=== PATIENT | female | born 1950 | race Caucasian/White ===

== ENCOUNTER → 2018-06-24 | Outpatient (CLI) | payer MEDICARE ==
--- NOTE | 2018-06-24 13:18 | Diagnostic Imaging Report ---
PROCEDURE: CT head without contrast. TECHNIQUE: Multiple contiguous axial images were obtained through the brain without the use of intravenous contrast. INDICATION: Transient ischemic attack. History of hypertension and tobacco use. Carotid artery atherosclerosis. COMPARISON: None FINDINGS: There is no midline shift or mass effect. The ventricles and sulci are unremarkable. No evidence for acute intracranial hemorrhage, abnormal extra-axial fluid collections or cerebral edema is present. The basilar cisterns are unremarkable. The bony calvarium is intact. The visualized paranasal sinuses and mastoid air cells are clear. IMPRESSION: Negative appearing noncontrast CT of the head. Dictated by: Dictated on workstation # [id number]
--- NOTE | 2018-06-24 13:21 | Diagnostic Imaging Report ---
PROCEDURE: US carotid duplex, bilateral. TECHNIQUE: Multiple real-time grayscale images were obtained over the carotid arteries in various projections, bilaterally. Additional spectral analysis and color Doppler duplex images were also obtained. INDICATION: Transient ischemic attack. FINDINGS: There is mild plaquing identified at both carotid bifurcations as well as the proximal internal and external carotid arteries. Greatest plaque appears to be located in the proximal left ICA. However, velocities are fairly normal bilaterally. No significant velocity elevation or stenosis is seen. Both vertebral arteries show antegrade flow. IMPRESSION: Bilateral carotid plaque. There is no evidence of a hemodynamically significant stenosis. Parameters based on the consensus panel Rosales-Scale and Doppler ultrasound criteria published March 2003, Radiology, Volume 229. DOPPLER (peak systolic velocity M/S Right Left CCA 0.46 0.64 ICA Proximal 0.61 0.72 ICA Mid 0.72 0.88 ICA Distal 0.54 0.78 RATIO 1.56 1.38 ECA 1.25 1.29 VERT 0.81 0.63 Dictated by: Dictated on workstation # [id number]
== END ==
LOC: RAD 11:48
PROVIDERS: ATTEND Pediatrics
DX: I65.23 Occlusion and stenosis of bilateral carotid arteries (principal); I25.10 Atherosclerotic heart disease of native coronary artery without angina pectoris; Z87.891 Personal history of nicotine dependence; Z86.79 Personal history of other diseases of the circulatory system
CPT/HCPCS: 70450; 93306; 93880

== ENCOUNTER → 2018-08-01 | Outpatient (CLI) | payer MEDICARE ==
--- NOTE | 2018-08-01 09:42 | Diagnostic Imaging Report ---
PROCEDURE: US abdomen complete. TECHNIQUE: Multiple real-time grayscale images were obtained over the abdomen in various projections. INDICATION: Right upper quadrant abdominal pain. FINDINGS: Liver is normal in size at 14.4 cm. No discrete liver mass is identified. Portal vein is patent and shows normal direction of flow. Gallbladder is without stones or sludge. No wall thickening or biliary ductal dilatation is seen. Visualized pancreas is unremarkable. Spleen is normal in size at 9.9 cm. Proximal aorta is non-aneurysmal. Mid and distal aorta were obscured by bowel gas. IVC appears patent. Right kidney does contain a cyst in the upper pole approximately 16 mm in size. Left kidney contains a cyst in the midportion approximately 18 mm in size. No calculi or hydronephrosis is identified. There is no ascites. IMPRESSION: Essentially unremarkable abdominal ultrasound apart from small bilateral renal cysts. There is no evidence of cholelithiasis or acute cholecystitis. Dictated by: Dictated on workstation # [id number]
== END ==
LOC: RAD 07:55
PROVIDERS: ATTEND Pediatrics
DX: N28.1 Cyst of kidney, acquired (principal)
CPT/HCPCS: 76700

== ENCOUNTER → 2018-08-11 | Outpatient (CLI) | payer MEDICARE ==
--- NOTE | 2018-08-11 19:33 | Diagnostic Imaging Report ---
EXAMINATION: Pelvic ultrasound. INDICATION: Intramural leiomyoma of the uterus. COMPARISON: There are no prior studies available for comparison. FINDINGS: The uterus is not enlarged measuring 7.8 x 4.7 x 3.4 cm. Along the anterior aspect of the uterine body/fundus, there is a 2.4 x 1.9 x 1.9 cm area of slightly altered echogenicity. This finding is questionable for a fibroid. There is no other focal mass involving the uterus. The endometrial lining is not thickened measuring 5 mm. Neither ovary was identified. There is no solid pelvic mass or free fluid collection noted. IMPRESSION: 1. There is a question of a 2.4 x 1.9 x 1.9 cm fibroid along the anterior aspect of the body/fundus of the uterus. The uterus itself does not seem to be enlarged. 2. There is no acute pelvic abnormality noted. 3. The ovaries were not identified. Dictated by: Dictated on workstation # [id number]
== END ==
LOC: RAD 15:10
PROVIDERS: ATTEND Pediatrics
DX: D25.1 Intramural leiomyoma of uterus (principal)
CPT/HCPCS: 76830; 76856

== ENCOUNTER 2019-06-08 09:17 | Emergency (ER) | payer MEDICARE ==
[~2019-06-08] VITALS: Ht 163.5 cm; Wt 84.4 kg
[2019-06-08] MEDS ORDERED: RT-ALBUTEROL/IPRATROPIUM 3 ML (DUONEB) VIAL INH ONE (09:45)
--- NOTE | 2019-06-08 09:50 | ED Respiratory ---
General Chief Complaint: Respiratory Problems Stated Complaint: SOA Nursing Triage Note: pt reports that co-worker came to work last week with pna and now she believes she has pna. pt reports having hard time sleeping due to cough. Source: patient Exam Limitations: no limitations History of Present Illness Date Seen by Provider: Jun 08, 2019 Time Seen by Provider: 09:35 Initial Comments Patient resents to ER by private conveyance with her significant other and chief complaint that for the past week or 2 she's been having some shortness of breath nonproductive cough. No fevers or chills. She says there was someone at her work that had pneumonia. She does not have a history of COPD or asthma but does smoke pack and a half of cigarettes per day. She denies wheezing or having an nebulizer or albuterol inhaler. She is to follow with Dr. Tadeo but is setting up to establish care with Dr. Lew. She has no chest pain nausea sweats dysuria. Allergies and Home Medications Allergies Coded Allergies: No Known Drug Allergies (Unverified , 06/08/19) Patient Home Medication List Home Medication List Reviewed: Yes Review of Systems Review of Systems Constitutional: No chills, No fever, No malaise EENTM: No ear discharge, No ear pain Respiratory: cough; No phlegm, No wheezing Cardiovascular: No chest pain, No edema Gastrointestinal: No abdominal pain, No constipation, No diarrhea, No nausea Genitourinary: No discharge, No dysuria Musculoskeletal: No back pain, No joint pain Skin: No pruritus, No rash Psychiatric/Neurological: Denies Headache, Denies Numbness Past Cxtautt-Cvnugr-Wulsdt Hx Patient Social History Alcohol Use: Denies Use Recreational Drug Use: No Smoking Status: Current Everyday Smoker Type Used: Cigarettes Recent Foreign Travel: No Contact w/Someone Who Travel: No Recent Infectious Disease Expo: No Recent Hopitalizations: No Physical Abuse: No Sexual Abuse: No Seasonal Allergies Seasonal Allergies: No Past Medical History Surgeries: No Respiratory: No Cardiac: Yes Hypertension Neurological: No Genitourinary: No Gastrointestinal: No Musculoskeletal: No Endocrine: No HEENT: No Cancer: No Psychosocial: No Integumentary: No Blood Disorders: No Physical Exam Vital Signs - First Documented 06/08/19 09:24 Temp 36.1 Pulse 60 Resp 16 B/P (MAP) 204/105 (138) Pulse Ox 94 O2 Delivery Room Air Capillary Refill : Less Than 3 Seconds Height: '" Weight: lbs. oz. kg; 31.00 BMI Method: General Appearance: WD/WN, no apparent distress Eyes: Bilateral Eye Normal Inspection, Bilateral Eye PERRL, Bilateral Eye EOMI HEENT: PERRL/EOMI, normal ENT inspection, pharynx normal Neck: full range of motion, supple, normal inspection Respiratory: no respiratory distress, no accessory muscle use, wheezing (bilateral) Cardiovascular: normal peripheral pulses, regular rate, rhythm Neurologic/Psychiatric: alert, normal mood/affect Skin: normal color, warm/dry Progress/Results/Core Measures Suspected Sepsis Recent Fever Within 48 Hours: No Infection Criteria Present: None New/Unexplained Altered Menta: No Sepsis Screen: No Definite Risk SIRS Temperature: Pulse: 60 Respiratory Rate: 16 Blood Pressure 204 /105 Mean: 138 Results/Orders Micro Results Microbiology 06/08/19 Influenza Types A,B Antigen (CHANO) - Final, Complete My Orders Orders - LASHAE OWENS Influenza A And B Antigens (06/08/19 09:45) Chest Pa/Lat (2 View) (06/08/19 09:45) Albuterol/Ipra Inhalation Soln (Duoneb I (06/08/19 09:45) Svn Small Volume Nebulizer (06/08/19 09:45) Medications Given in ED Current Medications Medications Dose Ordered Sig/Maria Antonia Route Start Time Stop Time Status Last Admin Dose Admin Albuterol/ Ipratropium 3 ml ONCE ONCE INH 06/08/19 09:45 06/08/19 09:46 DC 06/08/19 09:54 3 ML Vital Signs/I&O 06/08/19 09:24 Temp 36.1 Pulse 60 Resp 16 B/P (MAP) 204/105 (138) Pulse Ox 94 O2 Delivery Room Air Capillary Refill : Less Than 3 Seconds Blood Pressure Mean: 138 Progress Note #1: Time: 09:49 Progress Note Chest x-ray and a DuoNeb. We'll reassess her. Influenza swab. Aseptic vital signs nonacute presentation. Suspect underlying COPD and we have encouraged her to explore this with her primary care. Progress Note #2: Time: 11:29 Progress Note Breath sounds are improved however I still hear some wheezing. We'll put her on prednisone and have her follow-up with primary care for recheck in one week. Diagnostic Imaging Diagonstic Imaging: Xray Plain Films/CT/US/NM/MRI: chest (two-view) Comments [facility], [place] NAME: [facility] REC#: [id number] PT STATUS: REG ER : 1950 PHYSICIAN: LASHAE OWENS MD ADMIT DATE: 06/08/19/ER Signed Date of Exam:06/08/19 CHEST PA/LAT (2 VIEW) INDICATION: Shortness of breath. COMPARISON: None. FINDINGS: Frontal and lateral views of the chest demonstrate clear lungs bilaterally. The heart is normal. There is no pneumothorax. Osseous structures are normal. IMPRESSION: Negative chest. Dictated by: Dictated on workstation # [id number] Dict: 06/08/19 1038 Trans: 06/08/19 1042 [id number] Interpreted by: JUDY BARRETT Electronically signed by: JUDY BARRETT 06/08/19 1042 Reviewed: Reviewed by Me Departure Impression Primary Impression: Bronchitis Disposition: 01 HOME, SELF-CARE Condition: Improved Departure-Patient Inst. Decision time for Depature: 11:30 Referrals: CORTES TADEO MD (PCP/Family) Primary Care Physician Patient Instructions: Acute Bronchitis, Adult (DC) Add. Discharge Instructions: 2 puffs of albuterol every 4 hours as needed for wheezing, shortness of breath or coughing fits. Tessalon Perles 1 tablet every 6 hours as needed for coughing. Humidifiers and vapor rubs. Tylenol and ibuprofen for fever or body aches. Get plenty of rest and return to work when you're no longer having fever for 24 hours. All discharge instructions reviewed with patient and/or family. Voiced understanding. Scripts Benzonatate (TESSALON PERLES) 100 Mg Capsule 100 MG PO Q6H PRN for COUGH, #30 CAP 0 Refills Prov: LASHAE OWENS 06/08/19 Prednisone (Prednisone) 20 Mg Tab 40 MG PO DAILY for 5 Days, #10 TAB 0 Refills Prov: LASHAE OWENS 06/08/19 Inhaler, Assist Devices (Space Chamber Plus) 1 Each Spacer EACH MC for Wheezing, #1 Prov: LASHAE OWENS 06/08/19 Albuterol Sulfate (PROAIR HFA) 1 Puff Puff 2 PUFF IH Q4H PRN for WHEEZING, #1 EA 0 Refills 1 PUFF = 90 MCG Prov: LASHAE OWENS 06/08/19 Work/School Note: Work Release Form Date Seen in the Emergency Department: Jun 08, 2019 Return to Work: Jun 09, 2019 Restrictions: No Restrictions LASHAE OWENS Jun 08, 2019 09:50
--- NOTE | 2019-06-08 10:41 | Diagnostic Imaging Report ---
INDICATION: Shortness of breath. COMPARISON: None. FINDINGS: Frontal and lateral views of the chest demonstrate clear lungs bilaterally. The heart is normal. There is no pneumothorax. Osseous structures are normal. IMPRESSION: Negative chest. Dictated by: Dictated on workstation # [id number]
--- NOTE | 2019-06-08 11:15 | NUR ---
RESTING IN BED ET DENIES NEEDS AT THIS TIME. NOTIFIED EVERYTHING WAS BACK ET WAITING ON DR TO LOOK AT EVERYTHING.
[2019-06-08] MEDS ORDERED: INHA1SPA24 MC (11:29)
[2019-06-08] MEDS ORDERED: PRD20T PO (11:29)
[2019-06-08] MEDS ORDERED: BENZ100C18 PO (11:29)
[2019-06-08] MEDS ORDERED: RT-ALBUINH IH (11:29)
[2019-06-08 11:36] VITALS: BP 138/99
== END 2019-06-08 11:35 | disposition home or self-care (01) ==
LOC: EDUNIT# 09:17 → ER 09:18
DX: J40 Bronchitis, not specified as acute or chronic (principal); I10 Essential (primary) hypertension; F17.210 Nicotine dependence, cigarettes, uncomplicated
CPT/HCPCS: 71046; 87804

== ENCOUNTER → 2019-11-25 | Outpatient (CLI) | payer MEDICARE ==
[~2019-11-25] MED LIST: BENZ100C18 PO; INHA1SPA24 MC; PRD20T PO; RT-ALBUINH IH
[2019-11-25 13:34] LABS: ABSOLUTE RETIC # 77 10e9/L (24-90); BASOPHILS % (AUTO) 0 % (0-10); EOSINOPHILS # (AUTO) 0.4 10^3/uL (0.0-0.3); EOSINOPHILS % (AUTO) 4 % (0-10); HEMATOCRIT 50 % (35-52); HEMOGLOBIN 16.9 G/DL (11.5-16.0); LYMPHOCYTES % (AUTO) 25 % (12-44); MEAN CORPUSCULAR HEMOGLOBIN 29 PG (25-34); MEAN CORPUSCULAR HGB CONC 34 G/DL (32-36); MEAN CORPUSCULAR VOLUME 86 FL (80-99); MEAN PLATELET VOLUME 10.8 FL (7.4-10.4); MONOCYTES % (AUTO) 8 % (0-12); NEUTROPHILS # (AUTO) 7.7 X 10^3 (1.8-7.8); NEUTROPHILS % (AUTO) 63 % (42-75); PLATELET COUNT 226 10^3/uL (130-400); RED CELL DISTRIBUTION WIDTH 15.5 % (10.0-14.5); RETICULOCYTE % 1.33 % (0.50-2.40); WHITE BLOOD COUNT 12.2 10^3/uL (4.3-11.0)
[2019-11-25 14:31] LABS: NEUTROPHILS % (MANUAL) 58 %
[2019-11-25 14:32] LABS: ANISOCYTOSIS SLIGHT; BASOPHILS % (MANUAL) 0 %; EOSINOPHILS % (MANUAL) 3 %; LYMPHOCYTES % (MANUAL) 31 %; MONOCYTES % (MANUAL) 8 %
== END ==
LOC: LAB 13:10
PROVIDERS: ATTEND Nurse Practitioner Family
DX: Z01.89 Encounter for other specified special examinations (principal)
CPT/HCPCS: 36415; 85007; 85027; 85045

== ENCOUNTER → 2020-07-19 | Outpatient (CLI) | payer MEDICARE ==
--- NOTE | 2020-07-19 10:53 | Diagnostic Imaging Report ---
INDICATION: Persistent hypertension. TECHNIQUE: Multiple Real-time grayscale sonographic images, color and duplex Doppler images were obtained of the urinary system. FINDINGS: Aortic velocity: 42.8 cm/sec. There is incidental note made of a distal abdominal aortic aneurysm measuring approximately 3.2 cm. RIGHT kidney: Size: 11.6 x 4.4 x 5.6 cm Hypoechoic masses, compatible with cysts. Largest at 2.2 cm superiorly. No hydronephrosis. The right renal artery is visualized in its proximal, mid and distal aspect. Maximum renal artery velocity: 164cm/sec Maximum renal artery/aortic ratio: 3.9 LEFT kidney: Size: 12.7 x 5.1 x 5.4 cm The left renal parenchyma and collecting system appear unremarkable. Probable cyst inferior pole left kidney at 1.5 cm. No hydronephrosis. Maximum renal artery velocity: 102cm/sec Maximum renal artery/aortic ratio: 2.4 Bladder: Unremarkable. The ureteral jets are not visualized. IMPRESSION: 1. Bilateral renal cortical cysts. 2. Diffusely decreased abdominal aortic velocity. This finding is nonspecific. There is presence of a distal abdominal aortic aneurysm measuring slightly greater than 3 cm. 3. Asymmetrically elevated velocity in the proximal right renal artery does raise concern for renal artery stenosis. 4. Given the findings, correlation with CTA of the abdominal aorta and abdomen would be recommended. 5. The report was called and faxed to JOSE Nnuo, by [email or web address]@10:48 AM. (RA/AO ratios > 3.0 may suggest potential hemodynamically significant stenosis.) Dictated by: Dictated on workstation # [id number]
== END ==
LOC: RAD 08:30
PROVIDERS: ATTEND Nurse Practitioner Family
DX: I10 Essential (primary) hypertension (principal); N28.1 Cyst of kidney, acquired; I71.4 Abdominal aortic aneurysm, without rupture
CPT/HCPCS: 76770; 93975

== ENCOUNTER 2020-08-01 08:10 | Day surgery (SDC) | payer MEDICARE ==
[~2020-08-01] VITALS: Ht 165.1 cm; Wt 85.7 kg
[2020-08-01] VITALS (11 sets, daily range): BP systolic 135–164; BP diastolic 71–87
[2020-08-01] MEDS ORDERED: NS IV 1000 ML 1,000 ML ONE (08:11)
[2020-08-01] MEDS ORDERED: LIDOCAINE 1% INJ 20 ML 20 ML VIAL ONE (08:11)
[2020-08-01] MEDS ORDERED: HEParin (CATH LAB) 2,000 ML IV ONE (08:11)
[2020-08-01] MEDS ORDERED: NS IV 1000 ML 1,000 ML IV SCH ×2 (08:15→10:00)
[2020-08-01 08:48] LABS: HEMOGLOBIN 17.1 g/dL (11.5-16.0); MEAN PLATELET VOLUME 10.1 fL (9.0-12.2)
[2020-08-01] MEDS ORDERED: MIDAZOLAM 5 MG/5 ML (VERSED) VIAL ONE (08:54)
[2020-08-01] MEDS ORDERED: fentaNYL INJ 100 MCG/2 ML AMP ONE (08:55)
--- NOTE | 2020-08-01 08:56 | Diagnostic Imaging Report ---
INDICATION: Renal artery stents. FINDINGS: There is blunting of the right angle, consistent with the development of at least a small basilar right-sided pleural effusion which is new. The lungs themselves are clear. The left pleural space is negative. The heart size and pulmonary vascularity are within normal limits. IMPRESSION: New small right pleural effusion with no other change. Dictated by: Dictated on workstation # [id number]
[2020-08-01] MEDS ORDERED: HYDR-3924 PO (08:57)
[2020-08-01] MEDS ORDERED: LOSA100T57 PO (08:57)
[2020-08-01] MEDS ORDERED: MTP25TSR PO (08:57)
[2020-08-01] MEDS ORDERED: AMLO-251 PO (08:57)
[2020-08-01 09:03] LABS: PROTHROMBIN TIME PATIENT 13.7 SEC (12.2-14.7)
[2020-08-01 09:11] LABS: ALANINE AMINOTRANSFERASE 15 U/L (0-55); ALKALINE PHOSPHATASE 77 U/L (40-136); BILIRUBIN,TOTAL 0.6 MG/DL (0.1-1.0); BUN/CREATININE RATIO 20; CALCIUM 9.6 MG/DL (8.5-10.1); CARBON DIOXIDE 22 MMOL/L (21-32); CHLORIDE 105 MMOL/L (98-107); CHOLESTEROL 177 MG/DL (< 200); CREATININE SERUM 0.88 MG/DL (0.60-1.30); GFR ESTIMATED > 60; GLUCOSE 118 MG/DL (70-105); HDL CHOLESTEROL 36 MG/DL (40-60); POTASSIUM 4.2 MMOL/L (3.6-5.0); SODIUM 137 MMOL/L (135-145); TOTAL PROTEIN 7.9 GM/DL (6.4-8.2); TRIGLYCERIDES 214 MG/DL (<150); VLDL CHOLESTEROL 43 MG/DL (5-40)
--- NOTE | 2020-08-01 09:26 | Cardiac Procedure Note-CS/ASA ---
Pre-Procedure Note Pre-Op Procedure Note H&P Reviewed The H&P was reviewed, patient examined and no changes noted. Date H&P Reviewed: Aug 01, 2020 Time H&P Reviewed: 09:26 Conscious Sedation Pre-Proced Time 09:26 ASA Score 3 For ASA 3 and 4: Consider anesthesia and medical clearance. Also, for patients with a history of failed moderate sedation consider anesthesia. Airway Lungs Heart ASA score ASA 1: a normal healthy patient ASA 2: a patient with a mild systemic disease (mid diabetes, controlled hypertension, obesity x ASA 3: a patient with a severe systemic disease that limits activity (angina, COPD, prior Myocardial infarction) ASA 4: a patient with an incapacitating disease that is a constant threat to life (CHF, renal failure) ASA 5: a moribund patient not expected to survive 24 hrs. (ruptured aneurysm) ASA 6: a declared brain- patient whose organs are being harvested. For emergent operations, add the letter E after the classification Mallampati Classification Grade 3 Sedation Plan Analgesia, Amnesia, Plan communicated to team members, Discussed options with patient/fam, Discussed risks with patient/fam The patient is an appropriate candidate to undergo the planned procedure, sedation, and anesthesia. The patient immediately re-assessed prior to indication. MINISTERIO WESTBROOK MD Aug 01, 2020 09:26
--- NOTE | 2020-08-01 09:51 | Discharge Inst-Post CATH ---
Discharge Inst-CATH/EP Problems Reviewed?: Yes Post Cardiac Cath/EP D/C Inst Follow Up/Plan Appointment with Dr Minor in 2-4 weeks <b>CARDIAC CATH/EP PROCEDURE DISCHARGE INSTRUCTIONS</b> ACTIVITY * Go Home directly and rest. * Limit activity of the leg (or wrist if it was used) for 7 days including aerobics, swimming, jogging, bicycling, etc. * Restrict stair-climbing for 7 days if possible, if not, climb up with your non-cath leg, then bring together on the same step. * Avoid lifting, pushing, pulling or excessive movement of the affected extremity for 7 days. * Customary sexual activity may be resumed after 2 days-use caution not to use a position that strains or causes pain to the affected extremity. * No driving for 24 hours. * NO SMOKING. * Avoid straining for bowel movements for 7 days. * Gentle walking on level ground is allowed. * Returning to work will depend on the type of procedure and the results. Your doctor will discuss this with you. CALL YOUR DOCTOR FOR ANY OF THE FOLLOWING: *If bleeding from the puncture site occurs- Apply gentle pressure to site with clean cloth and call your doctor or EMS. * If a knot or lump forms under the skin, increases in size, or causes pain. * If bruising appears to be worsening or moving further down your leg instead of disappearing. * Temperature above 101 F. CARE OF YOUR GROIN INCISION; * Bruising or purple discoloration of the skin near the puncture site is common. * You may shower only, no bathtub bathing for 5 days. Be careful to avoid slipping as your leg may feel stiff. * If a closure device was used on your femoral artery, please see the attached guide regarding care of the device and your leg. * Leave dressing on FOR 24 hours. CARE OF YOUR WRIST INCISION; * Bruising or purple discoloration of the skin near the puncture site is common. * You may shower. * DO NOT submerge wrist. * Leave dressing on FOR 24 hours. MINISTERIO MINOR MD Aug 01, 2020 9:51 am
[2020-08-01] MEDS ORDERED: PATIENT MAY USE OWN MEDS, ALL PO SCH (10:00)
--- NOTE | 2020-08-01 10:07 | Peripheral Report ---
Peripheral Report Physician (s)/Journal Box Inspector (s) Physician MINISTERIO WESTBROOK MD Pre-Procedure Diagnosis Pre-Procedure Diagnosis: Renal artery stenosis, abdominal aortic aneurysm Post-Procedure Note Procedure Start Date: Aug 01, 2020 Name of Procedure: Abdominal aortogram Selective bilateral renal angiogram Findings/Procedure Note PROCEDURE NOTE: 69-year-old lady with history of severe resistant hypertension, had ultrasound of the abdomen suggestive of renal artery stenosis, scheduled for abdominal aortogram and renal angiogram After explaining the procedure to the patient, all pros and cons were explained, all questions were answered. The patient signed the consent and then she was placed on the cardiac catheterization laboratory. The patient was placed on the cardiac catheterization laboratory. Groin was prepped SL fashion local anesthesia was used. Sheath placed in the right femoral artery, pigtail catheter was placed in the abdominal aorta and abdominal aortogram was done, the pigtail catheter was removed and I advanced Diomedes right catheter and intubated the left renal artery, selective left renal angiogram was done then it was turned and selectively intubating the right renal artery and selective right renal artery angiogram was done, catheter was removed. At the end of the procedure, sheath was removed, closure device riddhi hardy FINDINGS: Abdominal aortogram: Moderate sized abdominal aortic aneurysm involving the ostium of the renal arteries, there is sluggish blood flow in that area suggestive of restrictive disease, I am planning to evaluate CT angiogram of the abdominal and thoracic aorta. Selective left renal angiogram showed mild proximal disease nonobstructive disease Selective right renal angiogram was done showed no significant obstructive disease CONCLUSIONS: 1. Abdominal aortic aneurysm, moderate in size, there is sluggish flow in the abdominal aorta suggestive of some restriction, I am hesitant to do multiple imaging for the whole aorta, she will need to have a CT angiogram of the abdominal and thoracic aorta with IV contrast 2. Mild nonobstructive disease in the proximal portion of the left renal artery, no significant obstructive disease in the right renal artery DISCUSSION AND RECOMMENDATIONS: Continue to maximize medical therapy and evaluate CT angiogram of the thoracic and abdominal aorta Anesthesia Type: Conscious Sedation Estimated blood loss (mL): 25 ml Contrast Amount: 33 ml Total Radiation Dose: 121 mGy Post-Procedure Diagnosis Post-operative diagnosis: Abdominal aortic aneurysm Malignant hypertension Hyperlipidemia MINISTERIO WESTBROOK MD Aug 01, 2020 10:06
== END 2020-08-01 14:30 | disposition home or self-care (01) ==
LOC: CATH 08:10 → SDC 10:05 → CATH 14:30
PROVIDERS: ATTEND Internal Medicine Cardiovascular Disease
DX: I71.4 Abdominal aortic aneurysm, without rupture (principal); I10 Essential (primary) hypertension; E78.5 Hyperlipidemia, unspecified; I70.1 Atherosclerosis of renal artery; F17.210 Nicotine dependence, cigarettes, uncomplicated; Z79.899 Other long term (current) drug therapy
CPT/HCPCS: 36245; 36252; 71045; 75625; 80053; 80061; 85027; 85610; 85730; 87081; C1760; C1894; 36415

== ENCOUNTER → 2020-08-30 | Outpatient (CLI) | payer MEDICARE ==
[~2020-08-30] MED LIST changes: +AMLO-251 PO; +CATHETER FLUSH 10 ML SYR IV PRN; +HOLD METFORMIN - RECEIVED CONTRAST 20 ML VIAL IV SCH; +HYDR-3924 PO; +IOHEXOL 350 MG/ML 100 ML (OMNIPAQUE 350) VIAL IV ONE; +LOSA100T57 PO; +MTP25TSR PO; +NS 100 ML (IVPB) BAG IV ONE
[2020-08-30 08:51] LABS: BUN/CREATININE RATIO 22; CREATININE SERUM 0.88 MG/DL (0.60-1.30); GFR ESTIMATED > 60
--- NOTE | 2020-08-30 10:02 | Diagnostic Imaging Report ---
PROCEDURE: CT angiography of the abdomen and chest with and without contrast. TECHNIQUE: After intravenous administration of contrast, thin section axial CT angiography of the abdomen and chest were obtained. 3D MIP reformats were provided. Auto Exposure Controls were utilized during the CT exam to meet ALARA standards for radiation dose reduction. INDICATION: Abdominal aneurysm without rupture. COMPARISON: None available. FINDINGS: AORTA: The thoracic aorta is normal in caliber with the ascending aorta having a maximal dimension of 3.2 cm. Mid descending thoracic aorta has a diameter of 2.5 cm at the level of the pulmonary trunk. The abdominal aorta has fusiform aneurysmal dilatation of the level of the renal arteries measuring 3.7 cm. There is a large amount of peripheral atherosclerotic plaque throughout the abdominal aorta but this does not result in flow-limiting stenosis. The bilateral common and external iliac arteries have extensive atherosclerotic plaque. There is occlusion of the right internal iliac artery at its origin. High-grade stenosis of the left internal iliac artery at its origin due to atherosclerotic plaquing. The great vessels of the aortic arch are patent. Celiac, superior mesenteric and bilateral renal arteries remain patent. CHEST: No endoluminal nodule within the trachea. No pulmonary mass or consolidation. No suspicious pulmonary nodules. Trace right pleural effusion. No left-sided pleural effusion or pneumothorax. Visualized portions of the thyroid are normal. No supraclavicular or axillary lymphadenopathy. No mediastinal, hilar or juxtaphrenic lymphadenopathy. The heart is mildly enlarged without pericardial effusion. No concerning regional osseous lesions. ABDOMEN: No free intraperitoneal air or fluid. No focal hepatic mass or nodularity of the surface. Portal vein is patent. The spleen and pancreas are normal in appearance. No adrenal mass. Kidneys enhance symmetrically without solid mass lesion or obstruction. There are a few cortical-based cysts in the kidneys, largest in the lower pole of the left kidney measuring 1.5 cm. The stomach is partially filled with fluid and there is no wall thickening. No dilated loops of bowel to indicate bowel obstruction. Sigmoid colon diverticulosis is partially visualized, but there are no features that would suggest diverticulitis. Appendix is normal. There are few borderline enlarged retroperitoneal lymph nodes at the level of the kidneys which are likely reactive in nature. The largest has a short axis diameter of 1.0 cm. IMPRESSION: 1. Fusiform abdominal aortic aneurysm measures up to 3.7 cm, arises at the level of the renal arteries, and extends over craniocaudal length of 4 cm. 2. Severe atherosclerosis is present throughout the abdominal aorta. 3. Trace right pleural effusion. No features of congestive heart failure. Dictated by: Dictated on workstation # [id number]
== END ==
LOC: RAD 09:15
PROVIDERS: ATTEND Internal Medicine Cardiovascular Disease
DX: I71.4 Abdominal aortic aneurysm, without rupture (principal)
CPT/HCPCS: 36415; 71275; 74175; 82565; 84520

== ENCOUNTER → 2021-03-06 | Outpatient (CLI) | payer MEDICARE ==
[2021-03-06 09:27] LABS: POTASSIUM 4.2 MMOL/L (3.6-5.0)
[2021-03-06 09:29] LABS: CALCIUM 9.5 MG/DL (8.5-10.1)
[2021-03-06 09:30] LABS: TOTAL PROTEIN 7.4 GM/DL (6.4-8.2)
[2021-03-06 09:32] LABS: BILIRUBIN,TOTAL 0.5 MG/DL (0.1-1.0)
[2021-03-06 09:34] LABS: CREATININE SERUM 0.79 MG/DL (0.60-1.30)
--- NOTE | 2021-03-06 10:39 | Diagnostic Imaging Report ---
INDICATION: Abdominal aortic aneurysm. TECHNIQUE: Multiple contiguous axial images were obtained through the abdomen and pelvis after administration of intravenous contrast. 3D MIP reconstructions were made. Auto Exposure Controls were utilized during the CT exam to meet ALARA standards for radiation dose reduction. Exam is compared with previous study of 08/30/2020 The visualized portions of the lung bases are clear. There were no pleural fluid collections. There is no free intraperitoneal air. The liver shows no focal lesion. Gallbladder appears normal. The spleen, pancreas, and adrenals appear unremarkable. Kidneys bilaterally show some cortical scarring on both sides with small cysts in each kidney. There is no solid mass. There is no retroperitoneal mass or adenopathy. There is no ascites or pneumoperitoneum. Visualized bowel loops appear unremarkable. CTA images demonstrate atherosclerotic plaquing of the distal descending aorta. 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 The more distal infrarenal portion of the aorta returns to normal caliber. There is diffuse aortic plaquing. The right renal artery is widely patent. Left renal artery shows moderate plaquing its origin, the renal arteries arise from the aneurysmal portion of the aorta. The SMA is widely patent and without stenosis. Celiac trunk is widely patent and without stenosis. The inferior mesenteric artery is patent with mild narrowing. The patient does have an accessory renal artery on the left side supplying the lower pole, without stenosis. The common iliac arteries show moderate plaquing on both sides with around 50% diameter stenosis. 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 The left internal iliac artery is patent with diffuse disease. External iliac arteries are patent on both sides with diffuse moderate plaquing. The common femoral arteries are patent on both sides. There appears be stenosis of the left SFA proximally. 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 The renal arteries arise from the aneurysmal portion. There is an accessory renal artery on the left side taking off more inferiorly which appears patent. There is diffuse atherosclerotic plaquing of the aortoiliac segments. 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 There is cortical scarring of both kidneys with small renal cysts. There is no abdominal mass or abnormal fluid collection. Dictated by: Dictated on workstation # [id number]
== END ==
LOC: RAD 08:38
PROVIDERS: ATTEND Internal Medicine Cardiovascular Disease
DX: I71.4 Abdominal aortic aneurysm, without rupture (principal); N28.1 Cyst of kidney, acquired; E78.2 Mixed hyperlipidemia
CPT/HCPCS: 36415; 74175; 80053; 80061

== ENCOUNTER → 2021-08-02 | Outpatient (CLI) | payer MEDICARE ==
[~2021-08-02] MED LIST changes: -CATHETER FLUSH 10 ML SYR IV PRN; -HOLD METFORMIN - RECEIVED CONTRAST 20 ML VIAL IV SCH; -IOHEXOL 350 MG/ML 100 ML (OMNIPAQUE 350) VIAL IV ONE; -NS 100 ML (IVPB) BAG IV ONE
== END ==
LOC: CARD 12:00
PROVIDERS: ATTEND Internal Medicine Cardiovascular Disease
DX: I34.0 Nonrheumatic mitral (valve) insufficiency (principal); I10 Essential (primary) hypertension
CPT/HCPCS: 93306

== ENCOUNTER → 2021-10-18 | Outpatient (CLI) | payer MEDICARE ==
[2021-10-18 10:16] LABS: BASOPHILS # (AUTO) 0.1 10^3/uL (0.0-0.1); BASOPHILS % (AUTO) 1 % (0-10); BILIRUBIN,URINE NEGATIVE (NEGATIVE); CLARITY,URINE SL CLOUDY; COLOR,URINE YELLOW; EOSINOPHILS # (AUTO) 0.2 10^3/uL (0.0-0.3); EOSINOPHILS % (AUTO) 2 % (0-10); GLUCOSE, URINE (UA) NEGATIVE (NEGATIVE); HEMATOCRIT 49 % (35-52); HEMOGLOBIN 16.3 g/dL (11.5-16.0); KETONES,URINE NEGATIVE (NEGATIVE); LEUKOCYTE ESTERASE ,URINE 1+ (NEGATIVE); LYMPHOCYTES # (AUTO) 2.6 10^3/uL (1.0-4.0); LYMPHOCYTES % (AUTO) 21 % (12-44); MEAN CORPUSCULAR HEMOGLOBIN 30 pg (25-34); MEAN CORPUSCULAR HGB CONC 33 g/dL (32-36); MEAN CORPUSCULAR VOLUME 89 fL (80-99); MEAN PLATELET VOLUME 10.5 fL (9.0-12.2); MONOCYTES # (AUTO) 1.1 10^3/uL (0.0-1.0); MONOCYTES % (AUTO) 9 % (0-12); NEUTROPHILS # (AUTO) 8.3 10^3/uL (1.8-7.8); NEUTROPHILS % (AUTO) 67 % (42-75); NITRITE,URINE POSITIVE (NEGATIVE); PH,URINE 5.5 (5-9); PLATELET COUNT 230 10^3/uL (130-400); PROTEIN,URINE TRACE (NEGATIVE); WHITE BLOOD COUNT 12.4 10^3/uL (4.3-11.0)
[2021-10-18 10:23] LABS: BACTERIA,URINE LARGE /HPF; RBC,URINE RARE /HPF; SQUAMOUS EPITHELIAL CELL,UR RARE /HPF
[2021-10-18 10:26] LABS: POTASSIUM 4.1 MMOL/L (3.6-5.0)
[2021-10-18 10:27] LABS: CALCIUM 9.9 MG/DL (8.5-10.1)
[2021-10-18 10:28] LABS: TOTAL PROTEIN 7.4 GM/DL (6.4-8.2)
[2021-10-18 10:30] LABS: BILIRUBIN,TOTAL 0.5 MG/DL (0.1-1.0)
[2021-10-18 10:32] LABS: CREATININE SERUM 1.02 MG/DL (0.60-1.30)
--- NOTE | 2021-10-18 10:46 | Diagnostic Imaging Report ---
Indication: Preop. Time of Exam: 9:59 AM Correlation is made with prior chest from 06/08/2019. Heart size normal. There is some minimal atelectasis or scarring left base. Otherwise lungs are clear. No effusion or pneumothorax is detected. Impression: No acute cardiopulmonary process is detected. Dictated by: Dictated on workstation # [id number]
== END ==
LOC: CARD 09:30
PROVIDERS: ATTEND Nurse Practitioner
DX: Z01.810 Encounter for preprocedural cardiovascular examination (principal); Z01.818 Encounter for other preprocedural examination; I70.213 Atherosclerosis of native arteries of extremities with intermittent claudication, bilateral legs
CPT/HCPCS: 36415; 71046; 80053; 81000; 85025; 87077; 87088; 87186; 93005

== ENCOUNTER → 2021-10-31 | Outpatient (CLI) | payer MEDICARE ==
[2021-10-31 11:44] LABS: BASOPHILS # (AUTO) 0.1 10^3/uL (0.0-0.1); BASOPHILS % (AUTO) 1 % (0-10); EOSINOPHILS # (AUTO) 0.2 10^3/uL (0.0-0.3); EOSINOPHILS % (AUTO) 2 % (0-10); HEMATOCRIT 49 % (35-52); HEMOGLOBIN 16.2 g/dL (11.5-16.0); LYMPHOCYTES % (AUTO) 28 % (12-44); MEAN CORPUSCULAR HEMOGLOBIN 30 pg (25-34); MEAN CORPUSCULAR HGB CONC 33 g/dL (32-36); MEAN CORPUSCULAR VOLUME 90 fL (80-99); MEAN PLATELET VOLUME 10.2 fL (9.0-12.2); MONOCYTES % (AUTO) 9 % (0-12); NEUTROPHILS # (AUTO) 6.6 10^3/uL (1.8-7.8); NEUTROPHILS % (AUTO) 60 % (42-75); PLATELET COUNT 226 10^3/uL (130-400)
[2021-10-31 11:45] LABS: BILIRUBIN,URINE NEGATIVE (NEGATIVE); CLARITY,URINE CLEAR; COLOR,URINE YELLOW; GLUCOSE, URINE (UA) NEGATIVE (NEGATIVE); KETONES,URINE NEGATIVE (NEGATIVE); LEUKOCYTE ESTERASE ,URINE TRACE (NEGATIVE); NITRITE,URINE NEGATIVE (NEGATIVE); PH,URINE 5.5 (5-9); PROTEIN,URINE NEGATIVE (NEGATIVE)
[2021-10-31 11:54] LABS: BACTERIA,URINE NEGATIVE /HPF; SQUAMOUS EPITHELIAL CELL,UR RARE /HPF; WBC,URINE RARE /HPF
== END ==
LOC: LAB 11:11
PROVIDERS: ATTEND Thoracic Surgery (Cardiothoracic Vascular Surgery)
DX: Z01.812 Encounter for preprocedural laboratory examination (principal); Z01.810 Encounter for preprocedural cardiovascular examination; N39.0 Urinary tract infection, site not specified; I70.213 Atherosclerosis of native arteries of extremities with intermittent claudication, bilateral legs
CPT/HCPCS: 36415; 81000; 85025

== ENCOUNTER → 2021-12-06 | Outpatient (CLI) | payer MEDICARE ==
[2021-12-06 09:00] LABS: BILIRUBIN,URINE NEGATIVE (NEGATIVE); CLARITY,URINE CLEAR; COLOR,URINE YELLOW; GLUCOSE, URINE (UA) NEGATIVE (NEGATIVE); KETONES,URINE NEGATIVE (NEGATIVE); LEUKOCYTE ESTERASE ,URINE 1+ (NEGATIVE); NITRITE,URINE NEGATIVE (NEGATIVE); PH,URINE 5.5 (5-9); PROTEIN,URINE NEGATIVE (NEGATIVE)
[2021-12-06 09:22] LABS: RBC,URINE RARE /HPF
[2021-12-06 09:23] LABS: BACTERIA,URINE TRACE /HPF
== END ==
LOC: LAB 08:33
PROVIDERS: ATTEND Thoracic Surgery (Cardiothoracic Vascular Surgery)
DX: Z01.812 Encounter for preprocedural laboratory examination (principal); N39.0 Urinary tract infection, site not specified; I70.213 Atherosclerosis of native arteries of extremities with intermittent claudication, bilateral legs
CPT/HCPCS: 81000; 87088

== ENCOUNTER → 2021-12-27 | Outpatient (CLI) | payer MEDICARE ==
[2021-12-27 09:56] LABS: BASOPHILS # (AUTO) 0.1 10^3/uL (0.0-0.1); BASOPHILS % (AUTO) 1 % (0-10); EOSINOPHILS # (AUTO) 0.2 10^3/uL (0.0-0.3); EOSINOPHILS % (AUTO) 2 % (0-10); HEMATOCRIT 46 % (35-52); HEMOGLOBIN 15.6 g/dL (11.5-16.0); LYMPHOCYTES # (AUTO) 2.7 10^3/uL (1.0-4.0); LYMPHOCYTES % (AUTO) 25 % (12-44); MEAN CORPUSCULAR HEMOGLOBIN 30 pg (25-34); MEAN CORPUSCULAR HGB CONC 34 g/dL (32-36); MEAN CORPUSCULAR VOLUME 89 fL (80-99); MEAN PLATELET VOLUME 10.4 fL (9.0-12.2); MONOCYTES # (AUTO) 1.1 10^3/uL (0.0-1.0); MONOCYTES % (AUTO) 10 % (0-12); NEUTROPHILS # (AUTO) 6.6 10^3/uL (1.8-7.8); NEUTROPHILS % (AUTO) 62 % (42-75); PLATELET COUNT 216 10^3/uL (130-400); WHITE BLOOD COUNT 10.7 10^3/uL (4.3-11.0)
[2021-12-27 10:01] LABS: BILIRUBIN,URINE NEGATIVE (NEGATIVE); CLARITY,URINE CLEAR; COLOR,URINE YELLOW; GLUCOSE, URINE (UA) NEGATIVE (NEGATIVE); KETONES,URINE NEGATIVE (NEGATIVE); LEUKOCYTE ESTERASE ,URINE 2+ (NEGATIVE); NITRITE,URINE POSITIVE (NEGATIVE); PH,URINE 5.5 (5-9); PROTEIN,URINE TRACE (NEGATIVE)
[2021-12-27 10:12] LABS: ALBUMIN 3.8 GM/DL (3.2-4.5); POTASSIUM 3.8 MMOL/L (3.6-5.0)
[2021-12-27 10:13] LABS: CALCIUM 9.3 MG/DL (8.5-10.1)
[2021-12-27 10:14] LABS: TOTAL PROTEIN 7.3 GM/DL (6.4-8.2)
[2021-12-27 10:16] LABS: BILIRUBIN,TOTAL 0.5 MG/DL (0.1-1.0)
[2021-12-27 10:18] LABS: CREATININE SERUM 0.94 MG/DL (0.60-1.30)
[2021-12-27 10:37] LABS: BACTERIA,URINE MODERATE /HPF; SQUAMOUS EPITHELIAL CELL,UR RARE /HPF; WBC,URINE 25-50 /HPF
--- NOTE | 2021-12-27 12:51 | Diagnostic Imaging Report ---
INDICATION: Preop clearance, cardiac disease. Comparison with 10/18/2021. FINDINGS: PA and lateral chest. The lungs are well aerated and clear. No significant air trapping noted. The heart is upper limits of normal. No evidence of pulmonary edema or hilar adenopathy. No pneumothorax or pleural effusion. No bony abnormalities. IMPRESSION: Normal PA and lateral chest. Dictated by: Dictated on workstation # [id number]
== END ==
LOC: CARD 09:14
PROVIDERS: ATTEND Thoracic Surgery (Cardiothoracic Vascular Surgery)
DX: Z01.810 Encounter for preprocedural cardiovascular examination (principal); Z01.812 Encounter for preprocedural laboratory examination; I70.213 Atherosclerosis of native arteries of extremities with intermittent claudication, bilateral legs
CPT/HCPCS: 36415; 71046; 80053; 81000; 85025; 87077; 87088; 87186; 93005

== ENCOUNTER → 2022-01-02 | Outpatient (CLI) | payer MEDICARE ==
[2022-01-02 10:05] LABS: BILIRUBIN,URINE NEGATIVE (NEGATIVE); CLARITY,URINE CLEAR; COLOR,URINE YELLOW; GLUCOSE, URINE (UA) NEGATIVE (NEGATIVE); KETONES,URINE NEGATIVE (NEGATIVE); LEUKOCYTE ESTERASE ,URINE TRACE (NEGATIVE); NITRITE,URINE NEGATIVE (NEGATIVE); PROTEIN,URINE NEGATIVE (NEGATIVE)
[2022-01-02 10:14] LABS: BACTERIA,URINE NEGATIVE /HPF; CALCIUM OXALATE CRYSTALS,UR LARGE /LPF; SQUAMOUS EPITHELIAL CELL,UR 0-2 /HPF; WBC,URINE RARE /HPF
== END ==
LOC: LAB 09:47
PROVIDERS: ATTEND Thoracic Surgery (Cardiothoracic Vascular Surgery)
DX: Z01.810 Encounter for preprocedural cardiovascular examination (principal); I70.213 Atherosclerosis of native arteries of extremities with intermittent claudication, bilateral legs; N39.0 Urinary tract infection, site not specified
CPT/HCPCS: 81000

== ENCOUNTER → 2022-06-22 | Outpatient (CLI) | payer MEDICARE ==
[~2022-06-22] MED LIST changes: +ALBU8.5H6 IH; -RT-ALBUINH IH
== END ==
LOC: CARD 08:26
PROVIDERS: ATTEND Internal Medicine Cardiovascular Disease
DX: I11.9 Hypertensive heart disease without heart failure (principal)
CPT/HCPCS: 93306